=== PATIENT | male | born 1980 | race Caucasian/White ===

== ENCOUNTER → 2018-04-07 09:14 | Outpatient (CLI) | payer OTHER, SELFPAY ==
--- NOTE | 2018-04-07 09:16 | DI.RAD.S_ITS ---
PROCEDURE: XR FOOT LT MIN 3V INDICATIONS: atraumatic 1st mtp joint pain TECHNIQUE: 3 views of the foot were acquired. COMPARISON: None. FINDINGS: Bones: No fractures or dislocations. No suspicious bony lesions. Soft tissues: No tibiotalar joint effusion. Achilles tendon appears normal. IMPRESSION: No acute radiographic findings. If there is continued pain, followup exam or additional imaging such as MRI or CT could be performed for further assessment. Dictated by: Sandra Valentin M.D. on 04/07/2018 at 9:55 Approved by: Sandra Valentin M.D. on 04/07/2018 at 9:55
== END ==
PROVIDERS: Visit Provider Physician Assistant
DX: M79.675 Pain in left toe(s) (principal)
CPT/HCPCS: 73630

== ENCOUNTER → 2018-05-11 07:40 | Outpatient (CLI) | payer OTHER, SELFPAY ==
[2018-05-11 08:54] LABS: Blood Urea Nitrogen 17 mg/dL (9-20); Calcium 9.2 mg/dL (8.4-10.2); Carbon Dioxide 26 mmol/L (22-32); Chloride 105 mmol/L (98-107); Cholesterol 243 mg/dL (140-199); Estimated Glomerular Filt Rate > 60.0 mL/min (>60); Glucose 93 mg/dL (70-100); HDL Cholesterol 38 mg/dL (40-60); HEMOLYSIS < 15 (0-50); LDL Cholesterol Calculated 132 mg/dL (<100); Potassium 4.3 mmol/L (3.4-5.1); Sodium 144 mmol/L (137-145); Triglycerides 366 mg/dL (35-150); Uric Acid 8.7 mg/dL (3.5-8.5)
== END ==
PROVIDERS: PCP Student in an Organized Health Care Education/Training Program; Visit Provider Student in an Organized Health Care Education/Training Program
DX: M10.9 Gout, unspecified (principal); Z13.220 Encounter for screening for lipoid disorders
CPT/HCPCS: 36415; 80048; 80061; 84550

== ENCOUNTER 2020-11-15 11:33 | Emergency (ER) | payer BC, SELFPAY ==
[2020-11-15 11:35] VITALS: BP 152/88; PULSE 85; RESP 14; TEMP 37.1; O2SAT 96; BMI 33.2
--- NOTE | 2020-11-15 12:17 | ED_ITS ---
HPI - Back Pain/Injury General Chief Complaint: Back Pain/Injury Stated Complaint: felt pop in left buttocks 11/14/20 Time Seen by Provider: 11/15/20 12:03 Source: patient Limitations: no limitations History of Present Illness HPI Narrative: The patient is a 40-year-old male who presents with left leg numbness. He said he picked up his 40 lb dog yesterday and heard a pop and has had numbness in his posterior thigh, left testicle left side of his penis and left buttock area. He has no pain. He has no decreased range of motion in his left leg. He said he heard a pop. He has no fever or chills. He has had ongoing sciatic issues in that left leg for which he has seen a chiropractor in physical therapy for. He is not having any pain today but has definite decreased sensation. Related Data Home Medications Medication Instructions Recorded Confirmed acetaminophen PO 04/07/18 08/20/19 Previous Rx's Medication Instructions Recorded allopurinol 100 mg tablet 100 mg PO DAILY #30 tab 05/12/18 albuterol sulfate 90 mcg/actuation 2 puff INHALATION Q4-6H PRN #8.5 08/20/19 aerosol inhaler gram inhalational spacing device #1 each 08/20/19 prednisone 40 mg PO DAILY #10 tab 11/15/20 Allergies Allergy/AdvReac Type Severity Reaction Status Date / Time No Known Drug Allergies Allergy Verified 11/15/20 11:40 Review of Systems Review of Systems Narrative: GENERAL: Denies chills, fatigue, malaise, fever, sweats, travel HEENT: Denies sinus pain, ear pain, sore throat, difficulty swallowing, neck pain RESPIRATORY: Denies dyspnea, cough, wheezing, hemoptysis, sputum. CARDIOVASCULAR: Denies chest pain, palpitations, orthopnea, edema GASTROINTESTINAL: Denies nausea, vomiting, abdominal pain, diarrhea, constipation, melena. : Denies dysuria, frequency, incontinence, hematuria, urinary retention, flank pain. MUSCULOSKELETAL: Denies weakness, joint pain, or bony pain SKIN: No rash, no erythema, no pruritus NEUROLOGIC: See HPI PSYCHIATRIC: No concerning psychosocial issues. 12 point review of systems is negative except for those stated above and HPI Patient History Medical History (Updated 11/15/20 @ 16:31 by Capri Grimes DO) Cyst of lateral meniscus of left knee Unilateral post-traumatic osteoarthritis, left knee Surgical History H/O left knee surgery (~1997) H/O left knee surgery (12/2013) H/O right knee surgery (~1993) Family History Father ALS (amyotrophic lateral sclerosis) Mother No problems noted. Sister No problems noted. Grandfather No problems noted. Grandmother No problems noted. Grandfather No problems noted. Grandmother No problems noted. Social History Smoking Status: Current every day smoker Smoking Status: Current every day smoker tobacco type: vaping alcohol intake frequency: a few times a week Substance Use Type: does not use Exam Initial Vital Signs Initial Vital Signs: Vital Signs Temperature 98.8 F 11/15/20 11:35 Pulse Rate 85 11/15/20 11:35 Respiratory Rate 14 11/15/20 11:35 Blood Pressure 152/88 H 11/15/20 11:35 Pulse Oximetry 96 11/15/20 11:35 GENERAL: Well-appearing, well-nourished and in no acute distress. CARDIOVASCULAR: peripheral pulses in tact, cap refill <2 sec RESPIRATORY: No respiratory distress, speaks in full sentences without difficulty BACK: No vertebral tenderness or step-offs RECTAL: Good rectal tone coli : Nurse Roma present for exam. He certainly has decreased sensation posterior thigh on the left S1-S2 region decreased sensation to light touch in his left penis and left testicle. Testicle is nontender or swollen. No abnormality of penis RECTAL: Good rectal tone EXTREMITIES: Normal range of motion, no clubbing or edema. Neurovascularly intact. Left leg good flexion and extension of knee nontender in the hamstring no swelling. Decreased sensation posterior left thigh, strong distal pedal pulse NEUROLOGICAL: Cranial nerves II through XII grossly intact. Normal gait and speech. SKIN: Warm, dry, no petechiae, no rashes or lesions. Course Orders Ordered: ED Orders 11/15/20 12:17 MR lumbar spine wo/w con Stat 11/15/20 12:45 Comprehensive Metabolic Panel Stat Vital Signs Vital signs: Vital Signs - 8 hr 11/15/20 11:35 11/15/20 14:22 11/15/20 17:00 Temperature 98.8 F Pulse Rate 85 61 75 Respiratory Rate 14 18 18 Blood Pressure 152/88 H 136/82 141/89 H Pulse Oximetry 96 99 97 MDM - Back Pain/Injury Lab Data Attestation: I reviewed the patient's lab results. Result diagrams: 11/15/20 12:45 11/15/20 12:45 Labs: Lab Results 11/15/20 Range/Units 12:45 Sodium 139 (137-145) mmol/L Potassium 4.2 (3.4-5.1) mmol/L Chloride 103 (98-107) mmol/L Carbon Dioxide 28 (22-32) mmol/L BUN 16 (9-20) mg/dL Creatinine 0.96 (0.66-1.25) mg/dL Estimated GFR > 60.0 (>60) mL/min BUN/Creatinine Ratio 16.7 (6-22) Glucose 95 (70-100) mg/dL Calcium 9.7 (8.4-10.2) mg/dL Total Bilirubin 0.6 (0.2-1.3) mg/dL AST 28 (17-59) IU/L ALT 36 (<50) IU/L Alkaline Phosphatase 57 (38-126) U/L Total Protein 7.6 (6.3-8.2) g/dL Albumin 4.5 (3.5-5.0) g/dL Globulin 3.1 (1.7-4.1) g/dL Albumin/Globulin Ratio 1.5 (1.0-2.8) Imaging Data MR Lumbar: Radiologist's Impression: PROCEDURE: MR LUMBAR SPINE WO/W CON INDICATIONS: numbness left side S2 ash after injury TECHNIQUE: Noncontrast sagittal T1 spin echo and T2 fast spin echo, sagittal STIR, axial T1 and T2 fast spin echo through the lumbar spine. In cases with scoliosis, additional coronal T2 fast spin echo may be performed. After the administration of contrast, sagittal and axial T1 spin echo with fat saturation through the lumbar spine. COMPARISON: None. FINDINGS: Image quality: Diagnostic, with note made of motion artifact. Alignment and curvature: There is overall straightening of the normal lumbar lordosis. Minimal retrolisthesis is seen at the L5-S1 level. Marrow: Marrow is of normal overall signal. No acute vertebral body compression fractures. No suspicious marrow enhancement. Spinal cord: Conus medullaris terminates at the L1 level. Visualized spinal cord demonstrates normal signal, without suspicious enhancement. Paraspinous soft tissues: No paravertebral masses or abnormal enhancement. T12-L1: Normal appearance. L1-L2: Normal appearance. L2-L3: Normal appearance. L3-L4: The disc height and disk signal are well-preserved. Mild generalized di sc bulge is seen. Mild facet joint hypertrophy is seen. No significant neural foraminal narrowing can be seen. Mild central canal narrowing is seen. L4-L5: Mild loss of disc height is seen. Loss of disc signal is seen. Moderate disc bulge is seen, with a mild left subarticular disc extrusion, with inferior migration of the disc material, as on series 5, image 27. There is a focal annular fissure seen posteriorly. Moderate facet joint hypertrophy is seen. There is at least moderate left-sided and moderate right-sided neural foraminal narrowing seen. At least moderate central canal narrowing is seen. L5-S1: Moderate loss of disc height is seen. Loss of disc signal is seen. Millicent ctive marrow endplate changes are seen, which are hyperintense on T1-weighted and T2- weighted imaging and most consistent with fatty metaplasia (Modic type II changes). Moderate disc bulge is seen, with a prominent central disc extrusion, with inferior migration of the disc material. The extruded disc fragment measures 2.2 cm craniocaudal. There is associated severe central canal narrowing. Moderate to severe bilateral neural foraminal narrowing is seen, with associated mild compression upon the exiting nerve roots. IMPRESSION: At L5-S1, there is a severe central disc extrusion, with inferior migration of the disc material. There is associated severe central canal narrowing. Moderate to severe bilateral neural foraminal narrowing is also seen at L5-S1, with associated mild compression upon the exiting nerve roots. Note: Case discussed by telephone with Dr. Grimes at 2:40 p.m. [place] time on November 15, 2020. Dictated by: Samir Antonio M.D. on 11/15/2020 at 14:36 MDM Narrative Medical decision making narrative: Patient is in no pain but he has obvious decreased sensation in that S2-S3 dermatome. MRI actually does reveal that he has severe central canal stenosis at L5-S1. Dr. Rodriguez orthopedics and Spine surgeon have reviewed MRI at this time he says patient does not need emergent surgery but will need surgery sooner rather than later. Recommends having patient follow-up in the clinic and starting him on steroids. Discharge Plan Departure Patient Disposition: Home Clinical Impression: Radiculopathy due to disorder of intervertebral disc Instructions: DI for Lumbar Radiculopathy Activity Restrictions/Additional Instructions: *You have been diagnosed with severe herniated disc at L5-S1 *What to do: This will need surgery please call Dr. rodriguez's office, he said that he will need surgery sooner rather than later. *Continue to take medications as directed Prednisone 40 mg once a day for 5 days--> [facility] *Follow up with your primary care provider in 2-[address] Rodriguez's office tomorrow 1st thing to schedule follow-up appointment *Return to ER if you should have fever, increased leg weakness, changes in bowel or bladder habits or any new, worsening or concerning symptoms Prescriptions: New prednisone 20 mg tablet 40 mg PO DAILY Qty: 10 RF: 0 No Action acetaminophen PO RF: 0 albuterol sulfate 90 mcg/actuation HFA aerosol inhaler 2 puff INHALATION Q4-6H PRN (Reason: shortness of breath or wheezing) Qty: 8.5 RF: 0 (DME) Aerochamber MV Spacer See Rx Instructions .ROUTE .MEDSUPPLY Qty: 1 RF: 0 allopurinol 100 mg tablet 100 mg PO DAILY Qty: 30 RF: 5 Referrals: [facility] [Provider Group] Mehdi Serna MD [Primary Care Provider] -
[2020-11-15 13:03] LABS: Alanine Aminotransferase 36 IU/L (<50); Albumin 4.5 g/dL (3.5-5.0); Albumin Globulin Ratio 1.5 (1.0-2.8); Alkaline Phosphatase 57 U/L (38-126); Aspartate Aminotransferase 28 IU/L (17-59); BUN Creatinine Ratio 16.7 (6-22); Bilirubin Total 0.6 mg/dL (0.2-1.3); Blood Urea Nitrogen 16 mg/dL (9-20); Calcium 9.7 mg/dL (8.4-10.2); Carbon Dioxide 28 mmol/L (22-32); Chloride 103 mmol/L (98-107); Estimated Glomerular Filt Rate > 60.0 mL/min (>60); Globulin 3.1 g/dL (1.7-4.1); Glucose 95 mg/dL (70-100); HEMOLYSIS < 15 (0-50); Potassium 4.2 mmol/L (3.4-5.1); Sodium 139 mmol/L (137-145); Total Protein 7.6 g/dL (6.3-8.2)
[2020-11-15 14:22] VITALS: BP 136/82; PULSE 61; RESP 18; O2SAT 99
[2020-11-15 17:00] VITALS: BP 141/89; PULSE 75; RESP 18; O2SAT 97
== END 2020-11-15 17:01 | disposition home or self-care (01) ==
PROVIDERS: Emergency Provider Emergency Medicine; PCP Student in an Organized Health Care Education/Training Program
DX: M54.17 Radiculopathy, lumbosacral region (principal)
CPT/HCPCS: 36415; 72158; 80053; 99284; A9579

== ENCOUNTER 2020-11-16 07:01 | Day surgery (SDC) | payer BC, SELFPAY ==
[2020-11-16] VITALS (15 sets, daily range): BP systolic 111–140; BP diastolic 68–94; PULSE 69–92; RESP 7–16; TEMP 36.5–36.9; O2SAT 92–98; BMI 32.5
--- NOTE | 2020-11-16 07:18 | ED_ITS ---
HPI - Back Pain/Injury General Chief Complaint: Back Pain/Injury Stated Complaint: herniated disk Time Seen by Provider: 11/16/20 07:05 Source: patient Mode of arrival: Ambulatory Limitations: no limitations History of Present Illness HPI Narrative: Patient is a 40-year-old male who has known herniated disc at L5-S1 with severe central canal narrowing which was diagnosed yesterday by MRI. He initially had numbness in his S1 S2 dermatome posterior left thigh including his left penis in left scrotum this morning he says it has progressed over to the right side. He has no sensation when he has to urinate in fact he said he had to push on his abdomen in order to urinate this morning. He is having more pain. He took 1 dose of prednisone last evening. Yesterday he was given strict return precautions including changes in bowel or bladder habits he is here for further evaluation. He denies any fever or chills. MD Complaint: back pain Duration: constant Location: lumbar spine Quality: aching and tingling Related Data Home Medications Medication Instructions Recorded Confirmed acetaminophen PO 04/07/18 08/20/19 Previous Rx's Medication Instructions Recorded allopurinol 100 mg tablet 100 mg PO DAILY #30 tab 05/12/18 albuterol sulfate 90 mcg/actuation 2 puff INHALATION Q4-6H PRN #8.5 08/20/19 aerosol inhaler gram inhalational spacing device #1 each 08/20/19 prednisone 40 mg PO DAILY #10 tab 11/15/20 Allergies Allergy/AdvReac Type Severity Reaction Status Date / Time No Known Drug Allergies Allergy Verified 11/15/20 11:40 Review of Systems Review of Systems ROS Unobtainable: All systems reviewed & are unremarkable except as noted in HPI and below Constitutional Constitutional: Denies chills, Denies fever(s), Denies lethargy and Denies weakness Cardiovascular Cardiovascular: Denies chest pain, Denies irregular heart rhythm, Denies lightheadedness, Denies palpitations, Denies dyspnea, Denies dyspnea on exertion and Denies orthopnea Respiratory Respiratory: Denies cough, Denies dyspnea, Denies dyspnea on exertion and Denies wheezing Genitourinary Genitourinary: Reports as per HPI and Reports difficulty urinating Genitourinary: Reports as per HPI Musculoskeletal Musculoskeletal: Reports back pain Integumentary/Breasts Skin/Breast: Denies pruritus, Denies erythema, Denies rash and Denies wounds Neurologic Neurologic: Denies weakness Endocrine Endocrine: Denies palpitations Allergic/Immunologic Allergic/Immunologic: Denies wheezing Patient History Medical History (Updated 11/16/20 @ 08:14 by Capri Grimes DO) Cyst of lateral meniscus of left knee Unilateral post-traumatic osteoarthritis, left knee Surgical History H/O left knee surgery (~1997) H/O left knee surgery (12/2013) H/O right knee surgery (~1993) Family History Father ALS (amyotrophic lateral sclerosis) Mother No problems noted. Sister No problems noted. Grandfather No problems noted. Grandmother No problems noted. Grandfather No problems noted. Grandmother No problems noted. Social History Smoking Status: Current every day smoker Smoking Status: Current every day smoker tobacco type: vaping alcohol intake frequency: a few times a week Substance Use Type: does not use Exam Initial Vital Signs Initial Vital Signs: Vital Signs Temperature 97.8 F 11/16/20 07:10 Pulse Rate 81 11/16/20 07:10 Respiratory Rate 16 11/16/20 07:10 Blood Pressure 140/68 11/16/20 07:10 Pulse Oximetry 98 11/16/20 07:10 GENERAL: Well-appearing, well-nourished and in no acute distress. CARDIOVASCULAR: peripheral pulses in tact, cap refill <2 sec RESPIRATORY: No respiratory distress, speaks in full sentences without difficulty EXTREMITIES: Normal range of motion, no clubbing or edema. Neurovascularly i ntact, strength remains intact NEUROLOGICAL: Cranial nerves II through XII grossly intact. Normal gait and speech. Decreased sensation in left S1-S2 now along the right area as well SKIN: Warm, dry, no petechiae, no rashes or lesions. Course Orders Ordered: ED Orders 11/16/20 07:35 COVID19 - ADMIT (OFFICE HELPER CLERICAL swab/PCR) Stat 11/16/20 07:40 COVID19 -Nasal swab/Pre-Proc Stat 11/16/20 07:50 Basic Metabolic Panel Stat Complete Blood Count AUTO DIFF Stat Lactated Ringer's (Lactated Ringers) 1,000 mls @ 42 mls/hr IV CONT ANTONIO Discontinued Medications Acetaminophen (Acetaminophen 325 Mg Tablet) 975 mg PO NOW ONE Stop: 11/16/20 08:11 Last Admin: 11/16/20 08:22 Dose: 975 mg Documented by: Famotidine (Pepcid) 20 mg in 50 mls @ 200 mls/hr IV NOW ONE Stop: 11/16/20 08:26 Metoclopramide HCl 10 mg/ (Sodium Chloride) 52 mls @ 208 mls/hr IV NOW ONE Stop: 11/16/20 08:13 Lorazepam (Lorazepam 2 Mg/Ml Inj) 0.5 mg IV NOW ONE Stop: 11/16/20 08:05 Last Admin: 11/16/20 08:11 Dose: Not Given Documented by: Morphine Sulfate (Morphine 2 Mg/Ml Inj) 2 mg IV NOW ONE Stop: 11/16/20 07:19 Last Admin: 11/16/20 07:29 Dose: 2 mg Documented by: Ondansetron HCl (Ondansetron 4 Mg/2 Ml Inj) 4 mg IV NOW ONE Stop: 11/16/20 07:19 Last Admin: 11/16/20 07:29 Dose: 4 mg Documented by: Vital Signs Vital signs: Vital Signs - 8 hr 11/16/20 07:10 Temperature 97.8 F Pulse Rate 81 Respiratory Rate 16 Blood Pressure 140/68 Pulse Oximetry 98 MDM - Back Pain/Injury Lab Data Result diagrams: 11/16/20 07:50 11/16/20 07:50 Labs: Lab Results 11/16/20 11/16/20 11/16/20 Range/Units 07:35 07:40 07:50 WBC 8.3 (4.5-11.0) X10^3/uL RBC 5.02 (4.5-5.9) X10^6/uL Hgb 15.9 (13.5-17.5) g/dL Hct 46.8 (41-53) % MCV 93.3 (80-100) fL MCH 31.7 (26-34) PG MCHC 34.0 (30-36) % RDW 13.1 (11.6-14.8) % Plt Count 270 (150-400) X10^3/uL Neut % (Auto) 72.2 (50-75) % Lymph % (Auto) 21.1 L (25-40) % [place] % (Auto) 6.0 (3-14) % Eos % (Auto) 0.2 L (2-4) % Baso % (Auto) 0.5 (0-2) % Neut # (Auto) 6000 (1532-6482) /uL Lymph # (Auto) 1800 (4313-9905) /uL [place] # (Auto) 500 (0-900) /uL Eos # (Auto) 0 (0-450) /uL Baso # (Auto) 0 (0-100) /uL Sodium (137-145) mmol/L Potassium (3.4-5.1) mmol/L Chloride (98-107) mmol/L Carbon Dioxide (22-32) mmol/L BUN (9-20) mg/dL Creatinine (0.66-1.25) mg/dL Estimated GFR (>60) mL/min BUN/Creatinine Ratio (6-22) Glucose (70-100) mg/dL Calcium (8.4-10.2) mg/dL SARS-CoV-2 (PCR) Negative Negative (Negative) 11/16/20 Range/Units 07:50 WBC (4.5-11.0) X10^3/uL RBC (4.5-5.9) X10^6/uL Hgb (13.5-17.5) g/dL Hct (41-53) % MCV (80-100) fL MCH (26-34) PG MCHC (30-36) % RDW (11.6-14.8) % Plt Count (150-400) X10^3/uL Neut % (Auto) (50-75) % Lymph % (Auto) (25-40) % [place] % (Auto) (3-14) % Eos % (Auto) (2-4) % Baso % (Auto) (0-2) % Neut # (Auto) (2177-6665) /uL Lymph # (Auto) (7938-8126) /uL [place] # (Auto) (0-900) /uL Eos # (Auto) (0-450) /uL Baso # (Auto) (0-100) /uL Sodium 139 (137-145) mmol/L Potassium 4.3 (3.4-5.1) mmol/L Chloride 104 (98-107) mmol/L Carbon Dioxide 23 (22-32) mmol/L BUN 18 (9-20) mg/dL Creatinine 0.96 (0.66-1.25) mg/dL Estimated GFR > 60.0 (>60) mL/min BUN/Creatinine Ratio 18.8 (6-22) Glucose 115 H (70-100) mg/dL Calcium 9.7 (8.4-10.2) mg/dL SARS-CoV-2 (PCR) (Negative) MDM Narrative Medical decision making narrative: Bladder scan shows 77. Patient has symptoms concerning for developing cauda equina syndrome. 7:[address] Chavez contacted agrees that patient needs surgery today, will make arrangements. Discharge Plan Departure Patient Disposition: Admitted As Inpatient Clinical Impression: Cauda equina syndrome Admit Date/Time: 11/16/20 08:09 Admit Provider: Beth Mei
[2020-11-16] MEDS: MORPHINE 2 MG/ML INJ IV (07:29)
[2020-11-16] MEDS: ONDANSETRON 4 MG/2 ML INJ IV (07:29)
[2020-11-16 07:55] LABS: Add Manual Diff / Slide Review NO; Basophils Absolute Auto 0 /uL (0-100); Basophils Percent Auto 0.5 % (0-2); Eosinophils Absolute Auto 0 /uL (0-450); Eosinophils Percent Auto 0.2 % (2-4); Hematocrit 46.8 % (41-53); Hemoglobin 15.9 g/dL (13.5-17.5); Lymphocytes Absolute Auto 1800 /uL (1100-4500); Lymphocytes Percent Auto 21.1 % (25-40); Mean Corpuscular Hemoglobin 31.7 PG (26-34); Mean Corpuscular Volume 93.3 fL (80-100); Monocytes Absolute Auto 500 /uL (0-900); Neutrophils Absolute Auto 6000 /uL (1500-7000); Neutrophils Percent Auto 72.2 % (50-75); Platelet Count 270 X10^3/uL (150-400); Red Blood Cell Count 5.02 X10^6/uL (4.5-5.9); Red Cell Distribution Width 13.1 % (11.6-14.8); White Blood Cell Count 8.3 X10^3/uL (4.5-11.0)
[2020-11-16 07:59] LABS: COVID19 -Nasal RAPID Negative (Negative)
[2020-11-16 08:06] LABS: BUN Creatinine Ratio 18.8 (6-22); Blood Urea Nitrogen 18 mg/dL (9-20); Calcium 9.7 mg/dL (8.4-10.2); Carbon Dioxide 23 mmol/L (22-32); Chloride 104 mmol/L (98-107); Estimated Glomerular Filt Rate > 60.0 mL/min (>60); Glucose 115 mg/dL (70-100); HEMOLYSIS 15 (0-50); Potassium 4.3 mmol/L (3.4-5.1); Sodium 139 mmol/L (137-145)
--- NOTE | 2020-11-16 08:10 | PM.HP.1 ---
History of Present Illness History of Present Illness Date Patient Seen: 11/16/20 Time Patient Seen: 08:11 Date of Onset of Symptoms: 11/14/20 Chief complaint: herniated disk Narrative: Mr. Arrington is here for emergency surgery due to development of cauda equina syndrome due to an acute large L5-S1 disc herniation. He had left leg radiculopathy with radiating pain and numbness to his left leg. He has developed saddle parathesia, overflow incontinence and bowel incontinence overnight. He returned to the ER this morning. After ER physician contacted me at 7:25am, he is being scheduled for emergency surgery to decompress his spinal canal. Patient History Medical History (Updated 11/16/20 @ 08:14 by Capri Grimes DO) Cyst of lateral meniscus of left knee Unilateral post-traumatic osteoarthritis, left knee Surgical History H/O left knee surgery (~1997) H/O left knee surgery (12/2013) H/O right knee surgery (~1993) Family & Social History Family History Father ALS (amyotrophic lateral sclerosis) Mother No problems noted. Sister No problems noted. Grandfather No problems noted. Grandmother No problems noted. Grandfather No problems noted. Grandmother No problems noted. Safety & Behavioral: Feels Safe in Current Yes Environment Been Physically Hurt or No Threatened By a Person Tobacco & Substance use: Smoking Status Current every day smoker alcohol intake frequency a few times a week Substance Use Type does not use Meds Home Medications and Allergies Home Medications Medication Instructions Recorded Confirmed Type acetaminophen PO 04/07/18 08/20/19 History allopurinol 100 mg tablet 100 mg PO DAILY #30 tab 05/12/18 08/20/19 Rx albuterol sulfate 90 mcg/actuation 2 puff INHALATION Q4-6H PRN #8.5 08/20/19 08/20/19 Rx aerosol inhaler gram inhalational spacing device #1 each 08/20/19 08/20/19 Rx prednisone 40 mg PO DAILY #10 tab 11/15/20 Rx Allergies Allergy/AdvReac Type Severity Reaction Status Date / Time No Known Drug Allergies Allergy Verified 11/15/20 11:40 Exam Vital Signs (past 8 hours): - 11/16/20 07:10 Temperature 97.8 F Pulse Rate 81 Respiratory Rate 16 Blood Pressure 140/68 Pulse Oximetry 98 Oxygen Delivery Method Room Air Neuro Other: decreased sensibility to his groin (scrotum, perianal region), bilateral LE in S1 dermatome 4/5 motor strength in left gastroc + straight leg raise BLE. Objective Labs Result Diagrams: 11/16/20 07:50 11/16/20 07:50 Labs: Laboratory Results - last 24 hr 11/16/20 11/16/20 11/16/20 07:40 07:50 07:50 WBC 8.3 RBC 5.02 Hgb 15.9 Hct 46.8 MCV 93.3 MCH 31.7 MCHC 34.0 RDW 13.1 Plt Count 270 Neut % (Auto) 72.2 Lymph % (Auto) 21.1 L [place] % (Auto) 6.0 Eos % (Auto) 0.2 L Baso % (Auto) 0.5 Neut # (Auto) 6000 Lymph # (Auto) 1800 [place] # (Auto) 500 Eos # (Auto) 0 Baso # (Auto) 0 Sodium 139 Potassium 4.3 Chloride 104 Carbon Dioxide 23 BUN 18 Creatinine 0.96 Estimated GFR > 60.0 BUN/Creatinine Ratio 18.8 Glucose 115 H Calcium 9.7 SARS-CoV-2 (PCR) Negative Assessment & Plan Assessment & Plan narrative: Patient has developed cauda equina syndrome due to a large L5-S1 disc extrusion causing severe central canal stenosis and compression on his cauda equina nerves. Informed consent is obtained and patient is taken to the OR emergently for L5-S1 microdiscectomy and possible laminectomy.
--- NOTE | 2020-11-16 08:13 | PC.NURSE ---
at bedside. NPO since last night. YARDER ENGINEER taking to to OR now. Ativan not given d/t pt not consented yet.
[2020-11-16] MEDS: ACETAMINOPHEN 325 MG TABLET 975 MG PO (08:22)
[2020-11-16 08:42] LABS: COVID19 - ADMIT (NP swab/PCR) Negative (Negative)
[2020-11-16] MEDS: CEFAZOLIN 1 GM VIAL 2 GM IV (08:48)
--- NOTE | 2020-11-16 09:25 | SUR.OPER ---
Prone on spine table, head in foam head support, padded chest and pelvic supports, gel pad at knees, lower legs supported by pillows; nipples, genitalia and toes free of pressure, arms secured on foam padded arm boards at <90 degrees abduction. Tape over blanket at thigh secured to table.
[2020-11-16] MEDS: methylPREDNISolone acet DEPO 40 MG/ML VIAL IM (09:31)
[2020-11-16] MEDS: BUPIVACAINE 0.25% W/ EPI 30 ML VIAL INJ (09:32)
--- NOTE | 2020-11-16 09:32 | DI.RAD.S_ITS ---
PROCEDURE: XR LUMBAR SPINE 2-3V INDICATIONS: L5-S1 MICRO DISCECTOMY TECHNIQUE: To views of the lumbar spine were acquired. COMPARISON: [facility], MR, MR LUMBAR SPINE WO/W CON, 11/15/2020, 14:48. FINDINGS: Bones: Operative localization at the posterior elements of L5-S1 was performed and subsequent left access port for discectomy is present at that level. Soft tissues: Overlying bowel gas pattern is normal. No suspicious soft tissue calcifications. IMPRESSION: Expected intraoperative localization for left side approach L5-S1 discectomy.. Dictated by: Car Mancini M.D. on 11/16/2020 at 9:48 Approved by: Car Mancini M.D. on 11/16/2020 at 9:51
--- NOTE | 2020-11-16 10:12 | P.OP_ITS ---
Operative Date/Time/Diagnoses Date of procedure: 11/16/20 Time of procedure: 08:12 Pre-op diagnosis: 1. L5-S1 disc herniation 2. Cauda equina syndrome Post-op diagnosis: same Procedure & Clinicians Procedure: 1. L5-S1 left microdiscectomy 2. Utilization of microsurgical technique and operating microscope Same procedure as scheduled: Yes Indications: Patient has 2 day history of acute onset lumbar radiculopathy. Patient was seen in the emergency room yesterday and was informed of the potential risk and development of cauda equina syndrome. Patient has developed saddle paresthesia, lost his bladder and bowel control, bilateral lower extremity weakness. Patient has returned to the emergency room for assessment. Physical exam shows patient has a active cauda equina syndrome due to the large L5-S1 disc extrusion. Patient was this time educated about his current status. Informed consent was obtained emergently and patient was taken to the operating room emergently for decompression surgery using L5-S1 microdiskectomy technique. Surgeon: Diamante Chavez Click Yes if Unassisted: Yes Anesthesia Type: General Operative Notes Closure Type: primary Specimen(s): none sent Estimated Blood Loss (mL): 5 Blood products transfused: none Procedure in detail: Patient was seen in the preoperative area. Risks and benefits of the surgery was discussed with the patient. Informed consent was obtained from the patient and placed in the chart. Surgical site was marked. Patient was taken to the operative room. General anesthesia was administered. Prophylactic antibiotic was given to the patient less than 30 min before the incision was made. Patient was placed into a prone position on the Brian table. Patient's back was then prepped and draped in the sterile fashion. Time- out was performed at this time. Using AP and lateral C-arm imaging the interval between L5-S1 was identified and marked on patient's back. A 1 inch incision 1 in from midline was made on the left side. The fascia was incised in line with skin incision. Globus MARS retractors was placed inside the incision and docked onto the L5 lamina. Using microsurgical technique and operating microscope, a L5 laminotomy was performed using a Kerrison rongeur. Liagamentum flavum was resected at the site of the laminotomy. The disc space at L5-S1 was identified. There was a large extruded disc fragment impinging on the thecal sac as well as the left S1 nerve root. The large fragment was removed from the epidural space using a micropituitary. Microcurettes and pituitary was used to removed other small herniated disc fragments of disc from the epidural space. In the epidural space/disc space was also inspected at this time. Patient was found to have other chronic appearing smaller disc herniation which was also excised since they were touching the S1 nerve root on the left side. After the microdiskectomy was completed, the area medial lateral superior and inferior to the area of the microdiskectomy was inspected and explored using a micro curette. No other impinging structure was identified. The wound was then irrigated with sterile normal saline. 40 mg Depo-Medrol was placed into the epidural space. The deep fascia was closed with 1-0 Vicryl. The subcutaneous tissue was closed with 2-0 Vicryl. The skin was closed with skin tabby. Patient tolerated the procedure well. There were no complications. Patient was transferred recovery room in stable condition. Complications: none Post-operative Condition: stable Disposition: PACU Plan for aftercare: Discharge to home
[2020-11-16] MEDS: hydrOXYzine pamoate 25 MG CAPSULE PO (11:32)
[2020-11-16] MEDS: OXYCODONE IR 5 MG TABLET PO (11:32)
--- NOTE | 2020-11-16 13:14 | SUR.PHASEII ---
pt states pain controlled with oxy and po vistaril. Up without assistance to dress himself and able to transfer to w/c. Denies need to urinate. Aware to return to ER if he is unable to urinate at home. Rx for oxy provided to pt at d/c. d.c instructions explained to pt and he verbalized understanding. pt left in w/c with RN escort to car with his .
== END 2020-11-16 12:57 | disposition home or self-care (01) ==
LOC: ED 07:36 → AC 08:14 → OR 10:50
PROVIDERS: Emergency Provider Emergency Medicine; PCP Student in an Organized Health Care Education/Training Program; Referring Provider Emergency Medicine; Visit Provider Orthopaedic Surgery Orthopaedic Surgery of the Spine
PROC: (CPT 63030; principal; 2020-11-16 08:00)
DX: G83.4 Cauda equina syndrome (principal); M51.27 Other intervertebral disc displacement, lumbosacral region; M48.07 Spinal stenosis, lumbosacral region; M54.17 Radiculopathy, lumbosacral region; F17.210 Nicotine dependence, cigarettes, uncomplicated
CPT/HCPCS: 63030; 72100; 76000; 80048; 85025; 87635; 96374; 96375; 99284; C9803; J0330; J0690; J1030; J1100; J1170; J2250; J2270; J2405; J2704; J3010